=== PATIENT | male | born 1960 | race Caucasian/White ===

== ENCOUNTER 2020-08-07 20:28 | Emergency (ER) | payer MEDICAID ==
[~2020-08-07] VITALS: Ht 170.2 cm; Wt 72.6 kg
--- NOTE | 2020-08-07 20:28 | NUR ---
ISHMAEL KEY, PREBOOK. TAKEN TO CHAIR B
[2020-08-07 20:30] VITALS: BP 126/91
--- NOTE | 2020-08-07 22:00 | NUR ---
Pt assessment completed by [facility] , no nursing interventions needed at this time.
[2020-08-07 22:04] VITALS: BP 126/91
--- NOTE | 2020-08-07 22:06 | NUR ---
PATIENT BIB [employer]. PATIENT EXAMINED BY DR. Colbert. PATIENT MEDICALLY CLEARED AND RELEASED IN CUSTODY IN STABLE CONDITION. ORIGINAL PRE-BOOK FORM GIVEN TO OFFICER [place] [id number].
== END 2020-08-07 22:06 ==
LOC: MED 20:28
DX: F10.129 Alcohol abuse with intoxication, unspecified (principal); Z02.89 Encounter for other administrative examinations
CPT/HCPCS: 99283